=== PATIENT | male | born 1990 | race Two or more races ===

== ENCOUNTER 2017-05-20 15:58 | Emergency (ER) | payer OTHER ==
[~2017-05-20] VITALS: Ht 170.2 cm; Wt 95.3 kg
[2017-05-20 16:09] VITALS: BP 143/88
[2017-05-20] MEDS ORDERED: IBUPROFEN 600 MG TAB PO ONE ×2 (21:45→22:00)
== END 2017-05-20 22:25 | disposition home or self-care (01) ==
LOC: ER 15:58
DX: S76.211A Strain of adductor muscle, fascia and tendon of right thigh, initial encounter (principal); Z88.0 Allergy status to penicillin; X50.0XXA Overexertion from strenuous movement or load, initial encounter; Y93.89 Activity, other specified; Y99.0 Civilian activity done for income or pay; Y92.69 Other specified industrial and construction area as the place of occurrence of the external cause
CPT/HCPCS: 73502; 74176